=== PATIENT | male | born 1980 | race Caucasian/White ===

== ENCOUNTER 2020-04-28 18:45 | Emergency (ER) | payer SELFPAY ==
[2020-04-28 19:00] VITALS: BP 163/76; PULSE 113; RESP 18; TEMP 36.8; O2SAT 98; BMI 25.7
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
[2020-04-28] MEDS: fluorescein 1 mg Strip EYE-RIGHT (19:26)
[2020-04-28] MEDS: tetracaine 0.5% Op Soln 4 mL Btl 1 DROP EYE-RIGHT (19:27)
[2020-04-28 20:03] VITALS: BP 173/105; PULSE 103; O2SAT 95
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
[2020-04-28 21:41] VITALS: BP 162/103; PULSE 107; O2SAT 97
[2020-04-28 21:42] VITALS: BP 162/103; PULSE 110; O2SAT 95
--- NOTE | 2020-05-01 11:53 | DCPLANNER ---
software engineering manager had message to schedule a follow up appointment for patient with ENT. software engineering manager emailed patients information to both Batsheva and Yocasta at [facility] General Surgery. Patients information will be printed and reviewed. Clinic will call patient with appointment information.
--- NOTE | 2020-05-09 08:14 | DCPLANNER ---
storage manager sent email to Shayy and Charmaine at [facility] general surgery to confirm if an appointment had been scheduled for patient.
--- NOTE | 2020-05-11 11:20 | DCPLANNER ---
Patient has a follow up appointment scheduled for Tuesday, May 12, 2020 at 2:[address] Narayan, ENT. Clinic will contact patient with appointment information.
--- NOTE | 2020-05-25 14:36 | DCPLANNER ---
Patient had a follow up appointment scheduled for 05.12.[address] Sylvain ALANIS ENT - patient did attend appointment.
== END 2020-04-28 21:44 | disposition home or self-care (01) ==
PROVIDERS: Emergency Provider Family Medicine; PCP Family Medicine
DX: S02.31XA Fracture of orbital floor, right side, initial encounter for closed fracture (principal); S06.0X0A Concussion without loss of consciousness, initial encounter; Y00.XXXA Assault by blunt object, initial encounter
CPT/HCPCS: 70450; 70486; 73130; 99283

== ENCOUNTER 2020-07-15 18:54 | Emergency (ER) | payer SELFPAY ==
[2020-07-15] VITALS (7 sets, daily range): BP systolic 117–145; BP diastolic 75–88; PULSE 96–114; RESP 14–18; TEMP 36.6; O2SAT 95–99; BMI 26.4
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
--- NOTE | 2020-07-15 19:38 | W.ED.ABDPA2 ---
HPI - Abdominal Pain General: Chief Complaint: Abdominal Pain Stated Complaint: post surgery issues Time Seen by Provider: 07/15/20 19:15 History of Present Illness: HPI narrative: This a 40-year-old male who is on day 3 postop from a laparoscopic cholecystectomy at [facility] that family reports that was done on a emergent basis but he was able to be discharged following the surgery. He has been taking some oxycodone at home which does cause him to itch but denies any shortness of breath or hives he is also taking an [id number] stool softener. He is complaining of mid periumbilical abdominal pain sharp in nature he feels like it is gotten worse over the past couple of days he has passed some gas but he is not able to have a bowel movement. He denies any nausea or vomiting and no fevers denies any drainage from his wounds his wound near his bellybutton has had a little bit of bleeding but easily controlled with a simple Band-Aid. As far as his foot complaint they are saying that he has 2 abrasions over the base of his fourth and fifth toes that were not there prior to him going into the hospital and that it itches but there is no signs of infection redness or streaking up his leg Review of Systems Narrative: General: denies fatigue, fever or chills HEENT: denies ear pain, denies nasal congestion, denies vision changes, denies sore throat Neck: denies masses or pain Resp: denies cough, denies shortness of breath, denies pleuritic pain Cardio: denies chest pain, denies edema GI: see HPI, mid abdominal pain, denies N/V/D, denies black/tarry or bloody stools : denies hematuria, denies dysuria Neuro: denies headache, denies dizziness, denies motor or sensory changes Musculoskeletal: denies pain, denies swelling Skin: denies rashes Psych: denies SI or HI Endocrine: denies thyroid symptoms, denies lymphadenopathy all over ROS reviewed and patient denies PFSH ED PFSH: Social History Smoking and tobacco status: current every day smoker cigarettes Packs smoked per day: 0.5 Years cigarettes smoked: 20 Alcohol intake: never Special bk needs: No Physical Exam Narrative: EXAM NARRATIVE: General: a/o/3, no distress Head: atraumatic HEENT: normal eyes, normal conjunctiva, normal hearing, normal external nose, normal mouth, mucous membranes moist Neck: FROM, trachea midline Chest: normal expansion, no gross deformities Resp: normal speech, no retractions, no accessory muscle use, CTA bilaterally Cardio: regular rate and rhythm and no murmur, no peripheral edema, normal peripheral pulses GI: wounds healing well, no bleeding, hypertympanic and increased bowel sounds are very active : deferred Musculoskeletal: FROM, no pain or gross deformities Neuro: a/o appropriate for age, no gross motor or sensory deficitys, CN II-XII grossly intact, normal coordination, normal speech Skin: no rashes, 2 small abrasions almost more like a rug burn or friction rub at base of 4th/5th toes, no signs of infection Psych: cooperative, normal mood and effect Course Vital Signs: Vital signs: Vital Signs Temperature 97.8 F 07/15/20 18:58 Pulse Rate 100 07/15/20 21:35 Respiratory Rate 16 07/15/20 21:35 Blood Pressure 145/88 07/15/20 21:35 Pulse Oximetry 97 07/15/20 21:35 MDM - Abdominal Pain MDM Narrative: Medical decision making narrative: Discussed with patient his mid abdominal pains probably from the CO2 that they inflated patient and significant other do not appear happy with their care at the previous facility and so they were not even told about that he does appear to be a little hypertympanic he does have increased and very active bowel sounds so would think more unlikely to be a perforation. However I will check some labs and a CT scan just to look for any type of bile leak abscess and/or perforation of the bowel although I explained this to the patient and family could be difficult since he is just had instrumentation in his bowels and that the CO2 could mimic free air vice versa Discussed with him his foot issue does not appear to be infected Reviewed CAT scan results it seems unlikely that patient would have an abscess forming 2 days he does have a little bit of a white count but he also just had surgery 2 days ago. I spoke with Dr. Constantino the surgeon over at [facility] we reviewed the CT results and he agrees as well it would seem unlikely you have an abscess in 2 days patient has no fever and his liver functions have improved from what Dr. Constantino had said. Discussed results with the patient and family Dr. Burris said he would be happy to see them on Friday at 1 PM and he also recommended patient may be stick to ibuprofen or Tylenol and try to avoid significant pain medications as it can cause constipation which would increase his abdominal discomfort. I did give the results to him and to his significant other and discussed the plan and he says he feels better and he is ready for discharge Lab Data: Labs: Lab Results 07/15/20 07/15/20 Range/Units 19:48 19:48 WBC 14.6 H (4.0-10.0) 10^3/ uL RBC 5.30 (4.1-5.3) 10^6/u L Hgb 15.9 (11.7-16.6) g/dL Hct 46.6 (42.0-52.0) % MCV 87.9 (80-94) fL MCH 30.0 (28.0-34.0) pg MCHC 34.1 (30.0-36.0) g/dL RDW 12.8 (12.1-15.1) % Plt Count 228 (130-400) 10^3/c mm MPV 9.8 (7.4-10.4) fL Neut % (Auto) 71.7 % Lymph % (Auto) 20.0 % [place] % (Auto) 6.2 % Eos % (Auto) 1.3 % Baso % (Auto) 0.3 % Neut # (Auto) 10.49 H (1.8-7.7) 10^3/u L Lymph # (Auto) 2.9 (0.8-4.8) 10^3/u L [place] # (Auto) 0.9 (0.2-0.9) 10^3/u L Eos # (Auto) 0.2 (0.0-0.8) 10^3/u L Baso # (Auto) 0.0 (0.0-0.1) 10^3/u L Nucleated RBC % (a uto) 0 % Nucleated RBCs # 0.0 /100WBC Sodium 139 (136-145) mmol/L Potassium 3.8 (3.5-5.1) mmol/L Chloride 102 (98-107) mmol/L Carbon Dioxide 29 (22-29) mmol/L Anion Gap 11.8 (5-19) BUN 12 (6-20) mg/dL Creatinine 0.8 (0.7-1.2) mg/dL GFR Calculation 106.5 (90-130) mL/min Glucose 91 (65-115) mg/dL Calculated Osmolal ity 287 (285-295) mOsm/k g Calcium 8.6 (8.5-10.5) mg/dL Total Bilirubin 0.4 (0.15-1.2) mg/dL AST 21 (0-40) U/L ALT 41 (0-41) U/L Alkaline Phosphata se 92 (40-130) IU/L Total Protein 6.3 L (6.6-8.7) g/dL Albumin 3.8 (3.5-5.2) g/dL Globulin 2.5 (1.3-4.6) g/dL Lipase 27 (13-60) U/L Discharge Plan Discharge Patient Disposition: Home Clinical Impression: Post-op pain Condition: Stable Prescriptions: No Action No Known Home Medications RF: 0 Discharge Orders: Discharge ED (Routine); Ordered 07/15/20 Ordered By: Diamante Mattson Referrals: Crispin Jim, [Primary Care Provider] - Discharge Diet: Advance as tolerated Patient Instructions: Opioid Safety, Post Operative Pain Activity Restrictions/Additional Instructions: Dr. Constantino over at [facility] said he could see you Friday at 1 PM for a recheck Monitor for fevers Recommend that she walk around more to see if you can get your bowels to move and/or pass more gas. Continue your stool softeners. Dr. Burris also recommends you try ibuprofen and/or Tylenol alternating them regularly instead of the pain medication so your bowels will move quicker however if you do need the pain medicine that is okay to go ahead and take it Return if fevers increased pain vomiting worsening of symptoms Thank you for choosing [facility] for your healthcare needs today. Please realize this is an emergency room and that we are providing you with a medical screening exam and this may not be complete and all inclusive of all the testing and or work up that you may need to determine your ailment or severity of your illness. It is very important that you follow up as instructed or that you return to the Emergency Department should you have concerns or if your condition changes or worsens in any way. Coding Level of Care Code ED Interlacer for Angelo Bains
[2020-07-15 19:53] LABS: Basophils % 0.3 %; Eosinophils # 0.2 10^3/uL (0.0-0.8); Eosinophils % 1.3 %; Hematocrit 46.6 % (42.0-52.0); Hemoglobin 15.9 g/dL (11.7-16.6); Lymphocytes # 2.9 10^3/uL (0.8-4.8); Mean Corpuscular HGB Conc 34.1 g/dL (30.0-36.0); Mean Corpuscular Volume 87.9 fL (80-94); Mean Platelet Volume 9.8 fL (7.4-10.4); Monocytes # 0.9 10^3/uL (0.2-0.9); Monocytes % 6.2 %; Neutrophils # 10.49 10^3/uL (1.8-7.7); Neutrophils % 71.7 %; Nucleated Red Blood Cells % 0 %; Platelet Count 228 10^3/cmm (130-400); Red Cell Distribution Width 12.8 % (12.1-15.1); White Blood Count 14.6 10^3/uL (4.0-10.0)
[2020-07-15 20:10] LABS: Alanine Aminotransferase 41 U/L (0-41); Albumin Level 3.8 g/dL (3.5-5.2); Alkaline Phosphatase 92 IU/L (40-130); Anion Gap 11.8 (5-19); Aspartate Amino Transferase 21 U/L (0-40); Blood Urea Nitrogen 12 mg/dL (6-20); Calcium 8.6 mg/dL (8.5-10.5); Carbon Dioxide 29 mmol/L (22-29); Chloride 102 mmol/L (98-107); Globulin 2.5 g/dL (1.3-4.6); Glomerular Filtration Rate 106.5 mL/min (90-130); Glucose 91 mg/dL (65-115); Lipase 27 U/L (13-60); Osmolality Calculated 287 mOsm/kg (285-295); Potassium 3.8 mmol/L (3.5-5.1); Sodium 139 mmol/L (136-145); Total Bilirubin 0.4 mg/dL (0.15-1.2); Total Protein 6.3 g/dL (6.6-8.7)
[2020-07-15] MEDS: fentaNYL 50 mcg/mL INJ 2mL IVP (20:10)
[2020-07-15] MEDS: iohexol 300 mg/mL 100 mL Btl IV (20:25)
== END 2020-07-15 21:38 | disposition home or self-care (01) ==
PROVIDERS: Emergency Provider Emergency Medicine; PCP Family Medicine
DX: G89.18 Other acute postprocedural pain (principal); F17.210 Nicotine dependence, cigarettes, uncomplicated
CPT/HCPCS: 74177; 80053; 83690; 85025; 96374; 99283; J3010; Q9967

== ENCOUNTER 2020-07-30 11:28 | Emergency (ER) | payer SELFPAY ==
[2020-07-30 11:30] VITALS: BP 128/88; PULSE 104; RESP 18; TEMP 36.7; O2SAT 98; BMI 26.4
--- NOTE | 2020-07-30 11:40 | ED_ITS ---
HPI - Seizure General: Chief Complaint: Seizure Stated Complaint: active seizures Time Seen by Provider: 07/30/20 11:38 Source: patient Mode of arrival: ambulatory Limitations: no limitations History of Present Illness: HPI Narrative: Patient is a 40-year-old male who presents to ED today along with his girlfriend for complaints of repetitive seizures beginning last night. Girlfriend states he has had a total of 7 seizures from yesterday evening and throughout the night. She states patient would tense up and then start shaking uncontrollably. States episodes would last anywhere from 30 seconds to 1 to 2 minutes. Afterwards he would be very confused and complained of visual changes. Patient states he has a seizure history and at one point was taking medications (does not know name) but states he was taken off of them while he was in senior care. Patient states his last seizure was 1.5 years ago. Girlfriend states they have been under a lot of stress recently and wonders if this could be contributing. Admits to methamphetamine use 4 days ago. No alcohol use. He complains of a headache currently. MD complaint: seizure Onset (ago): hour(s) Description of Episode: loss of consciousness, tonic-clonic movement and post- event confusion Witnessed: Yes - by Bystander (girlfriend) Trauma: No Seizure History: Yes Place: Home Possible Precipitating Event: stress Associated symptoms: Reports confusion and other (headache); Deny chest pain, chills, fever(s), malaise or syncope Treatments prior to arrival: none Review of Systems Const: Denies: fever(s), chills, body aches, fatigue or malaise Eyes: Reports: change in vision, blurry vision and other (following seizure episodes); Denies: photophobia, floaters or seeing flashes Card: Denies: chest pain, palpitations, irregular heart rhythm, lighthea dedness, syncope or dyspnea on exertion Resp: Denies: dyspnea, productive cough or pain on inspiration GI: Reports: nausea; Denies: abdominal pain, vomiting, heartburn or diarrhea : Denies: difficulty urinating or dysuria Musc: Denies: neck pain, back pain or joint pain Skin/Breast: Denies: rash Neuro: Reports: headache(s), confusion and seizure-like activity; Denies: numbness in extremities, weakness in extremities, sensory changes, frequent falls, dizziness, vertigo or Slurred speech present [facility] ED PFSH: Social History Smoking and tobacco status: current every day smoker cigarettes Packs smoked per day: 0.5 Years cigarettes smoked: 20 Alcohol intake: never Special bk needs: No Physical Exam Const: COMMON NORMALS: patient oriented x3, no limitations and alert GENERAL APPEARANCE: cooperative and in distress (complains of a headache) ORIENTATION/CONSCIOUSNESS: Yes awake, Yes oriented to person, Yes oriented to place and Yes oriented to time HENMT: COMMON NORMALS: normocephalic and atraumatic HEAD & SCALP: normal to inspection, normocephalic and atraumatic FACE & SINUS: normal facial exam MOUTH: other (no intraoral injury noted) Eye: COMMON NORMALS: EOMs intact bilaterally and conjunctivae normal VISUAL [place]: No peripheral vision loss ALIGNMENT: Yes alignment normal PERIORBITAL: periorbital findings normal EYELID: eyelids normal CONJUNCTIVA: Yes conjunctivae normal SCLERA: sclerae normal CORNEA: Yes corneas normal OTHER: R pupil is larger than L; direct and consenual light reflexes intact (this was present back in Apr according to provider documentation) Neck/C-Spine: COMMON NORMALS: full ROM, no lymphadenopathy and no meningeal signs Resp: COMMON NORMALS: normal respiratory effort and clear to auscultation bilaterally AUSCULTATION: clear to auscultation bilaterally Cardio: COMMON NORMALS: regular rate and regular rhythm RATE: regular rate RHYTHM: regular rhythm Neuro: YANI COMA SCALE: document GCS findings Yani coma scale eye opening: Spontaneous [place] coma scale verbal response: Orientated Yani coma scale motor response: Obey commands [place] coma scale total score: 15 COMMON NORMALS: patient oriented x3, CN's II-XII intact bilaterally, moves all extremities, no focal motor deficits and no sensory deficits noted SENSORIUM/ORIENTATION: Yes alert, Yes oriented to person, Yes oriented to place and Yes oriented to time MENINGEAL SIGNS: Yes no meningeal signs Skin: COMMON NORMALS: no rashes or lesions noted GENERAL SKIN EXAM: no rashes or lesions noted TRAUMA: no lacerations or abrasions Course Vital Signs: Vital signs: Vital Signs Temperature 98.0 F 07/30/20 11:30 Pulse Rate 104 H 07/30/20 11:30 Respiratory Rate 18 07/30/20 11:30 Blood Pressure 128/88 07/30/20 11:30 Pulse Oximetry 98 07/30/20 11:30 MDM - Seizure MDM Narrative: Medical decision making narrative: Patient has not had any seizure-like activity here. He was given a loading dose of Keppra and will be discharged home with this medication given history of 7 seizures throughout the night. Although he tells me he has been diagnosed with seizures previously he denies ever having an EEG performed. Patient will be referred to neurology for further evaluation. Patient does admit to being under a lot of stress. Active methamphetamine use. Certainly these activities could be functional related. Return to ED precautions given. Lab Data: Labs: Lab Results 07/30/20 07/30/20 07/30/20 Range/Units 12:05 12:05 12:05 WBC 11.3 H (4.0-10.0) 10^3/ uL RBC 5.36 H (4.1-5.3) 10^6/u L Hgb 16.1 (11.7-16.6) g/dL Hct 46.6 (42.0-52.0) % MCV 86.9 (80-94) fL MCH 30.0 (28.0-34.0) pg MCHC 34.5 (30.0-36.0) g/dL RDW 13.0 (12.1-15.1) % Plt Count 266 (130-400) 10^3/c mm MPV 10.4 (7.4-10.4) fL Neut % (Auto) 64.5 % Lymph % (Auto) 26.0 % [place] % (Auto) 5.6 % Eos % (Auto) 3.1 % Baso % (Auto) 0.4 % Neut # (Auto) 7.30 (1.8-7.7) 10^3/u L Lymph # (Auto) 3.0 (0.8-4.8) 10^3/u L [place] # (Auto) 0.6 (0.2-0.9) 10^3/u L Eos # (Auto) 0.4 (0.0-0.8) 10^3/u L Baso # (Auto) 0.1 (0.0-0.1) 10^3/u L Nucleated RBC % (a uto) 0 % Nucleated RBCs # 0.0 /100WBC Sodium 141 (136-145) mmol/L Potassium 4.3 (3.5-5.1) mmol/L Chloride 104 (98-107) mmol/L Carbon Dioxide 27 (22-29) mmol/L Anion Gap 14.3 (5-19) BUN 11 (6-20) mg/dL Creatinine 1.0 (0.7-1.2) mg/dL GFR Calculation 82.3 L (90-130) mL/min Glucose 76 (65-115) mg/dL Calculated Osmolal ity 290 (285-295) mOsm/k g Lactic Acid 2.0 (0.5-2.2) mmol/L Calcium 9.3 (8.5-10.5) mg/dL Magnesium 1.9 (1.7-2.3) mg/dL Total Bilirubin 0.3 (0.15-1.2) mg/dL AST 14 (0-40) U/L ALT 12 (0-41) U/L Alkaline Phosphata se 107 (40-130) IU/L Creatine Kinase 45 (39-308) U/L Total Protein 6.5 L (6.6-8.7) g/dL Albumin 4.4 (3.5-5.2) g/dL Globulin 2.1 (1.3-4.6) g/dL Urine Color (Yellow) Urine Appearance (CLEAR) Urine pH (5-7) Ur Specific Gravit y (1.005-1.030) Urine Protein (Negative) Urine Glucose (UA) (Normal) Urine Ketones (Negative) Urine Blood (Negative) Urine Nitrate (Negative) Urine Bilirubin (Negative) Urine Urobilinogen (Negative) mg/dL Ur Leukocyte [place] ase (Negative) Urine Opiates Scre en (Negative) ng/mL Ur Barbiturates Sc reen (Negative) ng/mL Ur Phencyclidine S crn (Negative) ng/mL Ur Amphetamines Sc reen (Negative) ng/mL U Benzodiazepines Scrn (Negative) ng/mL Urine Cocaine Scre en (Negative) ng/mL U Marijuana (THC) Screen (Negative) ng/mL 07/30/20 07/30/20 Range/Units 13:40 13:40 WBC (4.0-10.0) 10^3/ uL RBC (4.1-5.3) 10^6/u L Hgb (11.7-16.6) g/dL Hct (42.0-52.0) % MCV (80-94) fL MCH (28.0-34.0) pg MCHC (30.0-36.0) g/dL RDW (12.1-15.1) % Plt Count (130-400) 10^3/c mm MPV (7.4-10.4) fL Neut % (Auto) % Lymph % (Auto) % [place] % (Auto) % Eos % (Auto) % Baso % (Auto) % Neut # (Auto) (1.8-7.7) 10^3/u L Lymph # (Auto) (0.8-4.8) 10^3/u L [place] # (Auto) (0.2-0.9) 10^3/u L Eos # (Auto) (0.0-0.8) 10^3/u L Baso # (Auto) (0.0-0.1) 10^3/u L Nucleated RBC % (a uto) % Nucleated RBCs # /100WBC Sodium (136-145) mmol/L Potassium (3.5-5.1) mmol/L Chloride (98-107) mmol/L Carbon Dioxide (22-29) mmol/L Anion Gap (5-19) BUN (6-20) mg/dL Creatinine (0.7-1.2) mg/dL GFR Calculation (90-130) mL/min Glucose (65-115) mg/dL Calculated Osmolal ity (285-295) mOsm/k g Lactic Acid (0.5-2.2) mmol/L Calcium (8.5-10.5) mg/dL Magnesium (1.7-2.3) mg/dL Total Bilirubin (0.15-1.2) mg/dL AST (0-40) U/L ALT (0-41) U/L Alkaline Phosphata se (40-130) IU/L Creatine Kinase (39-308) U/L Total Protein (6.6-8.7) g/dL Albumin (3.5-5.2) g/dL Globulin (1.3-4.6) g/dL Urine Color Yellow (Yellow) Urine Appearance Clear (CLEAR) Urine pH 6 (5-7) Ur Specific Gravit y 1.020 (1.005-1.030) Urine Protein Neg (Negative) Urine Glucose (UA) Norm (Normal) Urine Ketones Negative (Negative) Urine Blood Neg (Negative) Urine Nitrate Negative (Negative) Urine Bilirubin Neg (Negative) Urine Urobilinogen Norm (Negative) mg/dL Ur Leukocyte [place] a[place] Negative (Negative) Urine Opiates Scre en Negative (Negative) ng/mL Ur Barbiturates Sc reen Negative (Negative) ng/mL Ur Phencyclidine S crn Negative (Negative) ng/mL Ur Amphetamines Sc reen Positive H (Negative) ng/mL U Benzodiazepines Scrn Negative (Negative) ng/mL Urine Cocaine Scre en Negative (Negative) ng/mL U Marijuana (THC) Screen Negative (Negative) ng/mL Imaging Data^: CT Head: Radiologist's impression: [address] [id number] Scan ReportSigned Patient: July Stephenson #: [id number]: [id number]#:[id number]/Sex: 40 / MADM Date: 07/30/20Loc: ERRoom/Bed:Attending Dr: Ordering Provider/Ordering MD: Elyssa Thornton Date of Service: 07/30/20 Procedure(s): CT head wo con* [id number] Accession Number(s): [id number] Report Number: [id number] PROCEDURE INFORMATION: Exam: CT Head Without Contrast Exam date and time: 07/30/2020 11:59 AM Age: 40 years old Clinical indication: Pain and condition or disease; Convulsions or seizures and headache; Headache not specified; Unspecified TECHNIQUE: Imaging protocol: Computed tomography of the head without contrast. Radiation optimization: All CT scans at this facility use at least one of these dose optimization techniques: automated exposure control; mA and/or kV adjustment per patient size (includes targeted exams where dose is matched to clinical indication); or iterative reconstruction. COMPARISON: CT head wo con* [id number] 04/28/2020 7:41 PM RADIATION DOSE METRICS: Total DLP (mGy-cm): 869.26 FINDINGS: Brain: Normal. No hemorrhage. Unremarkable white matter. No mass effect. Cerebral ventricles: No ventriculomegaly. Bones/joints: Unremarkable. No acute fracture. Paranasal sinuses: Visualized sinuses are unremarkable. No fluid levels. Mastoid air cells: Visualized mastoid air cells are well aerated. Soft tissues: Unremarkable. CT/CT head wo con* [id number] IMPRESSION: No acute intracranial abnormality. Radiation Dose CTDIVOL = (mGy): DLP = 869.26 (mGy-cm) Dictated By:Crispin Castro MDSigned By:Crispin Castro MDSigned Date/Time:07/30/20 1241DD/ 1240 Discharge Plan Discharge Patient Disposition: Home Clinical Impression: Seizure-like activity, Methamphetamine use Condition: Stable Prescriptions: New Keppra 500 mg tablet 500 mg PO BID Qty: 60 RF: 0 Discharge Orders: Discharge ED (Routine); Ordered 07/30/20 Ordered By: Elyssa Thornton Referrals: Harper Harvey MD [Physician] - Crispin Jim DO [Primary Care Provider] - Patient Instructions: Recurrent Seizures Adult (ED), Seizures Activity Restrictions/Additional Instructions: As discussed case management should contact you to set you up with a neurology follow-up appointment. You need to return to the emergency department for any further episodes of seizures. Please seek help regarding your methamphetamine use. Coding Level of Care Code ED Operations And Maintenance Technician for Chg Fwd Exam Comprehensive
[2020-07-30 12:20] LABS: Basophils # 0.1 10^3/uL (0.0-0.1); Basophils % 0.4 %; Eosinophils # 0.4 10^3/uL (0.0-0.8); Eosinophils % 3.1 %; Hematocrit 46.6 % (42.0-52.0); Hemoglobin 16.1 g/dL (11.7-16.6); Mean Corpuscular HGB Conc 34.5 g/dL (30.0-36.0); Mean Corpuscular Volume 86.9 fL (80-94); Mean Platelet Volume 10.4 fL (7.4-10.4); Monocytes # 0.6 10^3/uL (0.2-0.9); Monocytes % 5.6 %; Neutrophils % 64.5 %; Nucleated Red Blood Cells % 0 %; Platelet Count 266 10^3/cmm (130-400); Red Blood Count 5.36 10^6/uL (4.1-5.3); White Blood Count 11.3 10^3/uL (4.0-10.0)
[2020-07-30 13:03] LABS: Alanine Aminotransferase 12 U/L (0-41); Albumin Level 4.4 g/dL (3.5-5.2); Alkaline Phosphatase 107 IU/L (40-130); Anion Gap 14.3 (5-19); Aspartate Amino Transferase 14 U/L (0-40); Blood Urea Nitrogen 11 mg/dL (6-20); Calcium 9.3 mg/dL (8.5-10.5); Carbon Dioxide 27 mmol/L (22-29); Chloride 104 mmol/L (98-107); Creatine Phosphokinase 45 U/L (39-308); Globulin 2.1 g/dL (1.3-4.6); Glomerular Filtration Rate 82.3 mL/min (90-130); Glucose 76 mg/dL (65-115); Magnesium 1.9 mg/dL (1.7-2.3); Osmolality Calculated 290 mOsm/kg (285-295); Potassium 4.3 mmol/L (3.5-5.1); Sodium 141 mmol/L (136-145); Total Bilirubin 0.3 mg/dL (0.15-1.2); Total Protein 6.5 g/dL (6.6-8.7)
[2020-07-30 13:52] LABS: Add Urine Microscopic? NO; Charge for UA Resulting for Rev
[2020-07-30 13:55] LABS: Bilirubin Urine Neg (Negative); Blood Urine Neg (Negative); Glucose Urine UA Norm (Normal); Ketones Urine Negative (Negative); Leukocyte Esterase Urine Negative (Negative); Nitrate Urine Negative (Negative); Protein Urine Neg (Negative); Urine Appearance Clear (CLEAR); Urine Color Yellow (Yellow); Urobilinogen Urine Norm (Negative); pH Urine 6 (5-7)
[2020-07-30 14:02] LABS: Amphetamines Screen Urine Positive (Negative); Barbiturates Screen Urine Negative (Negative); Benzodiazepines Screen Urine Negative (Negative); Cocaine Screen Urine Negative (Negative); Opiate Screen Urine Negative (Negative); PCP Screen Urine Negative (Negative); THC Screen Urine Negative (Negative)
[2020-07-30 14:38] VITALS: BP 123/90; PULSE 106; RESP 18; O2SAT 98
--- NOTE | 2020-07-31 12:10 | DCPLANNER ---
Patient had a message to schedule a follow up appointment for patient with Dr. Hamlin office. fire manager emailed patients information to Jeannie at Dr. Hamlin office. Patients information will be printed and reviewed. Clinic will call patient with appointment information.
--- NOTE | 2020-08-10 15:01 | DCPLANNER ---
Patient has a follow up appointment scheduled for Friday, August 25, [address] at 9:[address] Harvey. Clinic will call patient with appointment information.
--- NOTE | 2020-10-03 11:53 | DCPLANNER ---
Patient had a follow up appointment scheduled for 08.25.[address] Harvey - patient did not attend appointment.
== END 2020-07-30 14:39 | disposition home or self-care (01) ==
PROVIDERS: Emergency Provider Physician Assistant; PCP Family Medicine
DX: R56.9 Unspecified convulsions (principal); F15.90 Other stimulant use, unspecified, uncomplicated; F17.210 Nicotine dependence, cigarettes, uncomplicated
CPT/HCPCS: 70450; 80053; 80306; 81003; 82550; 83605; 83735; 85025; 96374; 99283; J1953

== ENCOUNTER 2020-08-11 20:46 | Emergency (ER) | payer SELFPAY ==
[2020-08-11 21:03] VITALS: BP 133/86; PULSE 99; RESP 15; TEMP 36.6; O2SAT 100; BMI 27.2
[2020-08-11 21:23] VITALS: BP 132/73; PULSE 96; O2SAT 96
[2020-08-11 22:10] VITALS: BP 146/96; PULSE 95; O2SAT 95
[2020-08-11] MEDS: LORazepam 2 mg/mL INJ 1 mL IVP (22:36)
[2020-08-11] MEDS: sodium chloride 0.9% 1,000 ML 999 ML IV (22:37)
[2020-08-11 22:41] LABS: Basophils # 0.1 10^3/uL (0.0-0.1); Basophils % 0.4 %; Eosinophils # 0.4 10^3/uL (0.0-0.8); Eosinophils % 2.8 %; Hematocrit 44.1 % (42.0-52.0); Hemoglobin 15.9 g/dL (11.7-16.6); Lymphocytes # 4.3 10^3/uL (0.8-4.8); Mean Corpuscular HGB Conc 36.1 g/dL (30.0-36.0); Mean Corpuscular Hemoglobin 30.2 pg (28.0-34.0); Mean Corpuscular Volume 83.7 fL (80-94); Mean Platelet Volume 10.3 fL (7.4-10.4); Monocytes # 0.8 10^3/uL (0.2-0.9); Monocytes % 6.6 %; Neutrophils # 7.05 10^3/uL (1.8-7.7); Neutrophils % 55.6 %; Nucleated Red Blood Cells % 0 %; Platelet Count 195 10^3/cmm (130-400); Red Blood Count 5.27 10^6/uL (4.1-5.3); Red Cell Distribution Width 12.6 % (12.1-15.1); White Blood Count 12.7 10^3/uL (4.0-10.0)
[2020-08-11 22:55] LABS: Add Urine Microscopic? NO; Charge for UA Resulting for Rev
[2020-08-11 22:57] LABS: Alanine Aminotransferase 10 U/L (0-41); Albumin Level 4.3 g/dL (3.5-5.2); Alkaline Phosphatase 102 IU/L (40-130); Aspartate Amino Transferase 14 U/L (0-40); Blood Urea Nitrogen 13 mg/dL (6-20); Calcium 9.2 mg/dL (8.5-10.5); Carbon Dioxide 27 mmol/L (22-29); Chloride 103 mmol/L (98-107); Creatine Phosphokinase 53 U/L (39-308); Globulin 2.3 g/dL (1.3-4.6); Glomerular Filtration Rate 124.3 mL/min (90-130); Glucose 86 mg/dL (65-115); Magnesium 1.9 mg/dL (1.7-2.3); Osmolality Calculated 289 mOsm/kg (285-295); Phosphorus 3.8 mg/dL (2.5-4.5); Sodium 140 mmol/L (136-145); Total Bilirubin 0.4 mg/dL (0.15-1.2); Total Protein 6.6 g/dL (6.6-8.7)
[2020-08-11 23:01] LABS: Bilirubin Urine Neg (Negative); Blood Urine Neg (Negative); Glucose Urine UA Norm (Normal); Ketones Urine Negative (Negative); Leukocyte Esterase Urine Negative (Negative); Nitrate Urine Negative (Negative); Protein Urine Neg (Negative); Specific Gravity, Urine 1.025 (1.005-1.030); Urine Appearance Clear (CLEAR); Urine Color Yellow (Yellow); Urobilinogen Urine 1 mg/dL (Negative); pH Urine 5 (5-7)
[2020-08-11 23:01] LABS: Alcohol Level < 10 mg/dL (0-10); Anion Gap 13.9 (5-19); Potassium 3.9 mmol/L (3.5-5.1)
[2020-08-11 23:16] LABS: Slide Review Slide Review Perform
[2020-08-11 23:17] LABS: Amphetamines Screen Urine Positive (Negative); Barbiturates Screen Urine Negative (Negative); Benzodiazepines Screen Urine Negative (Negative); Cocaine Screen Urine Negative (Negative); Opiate Screen Urine Negative (Negative); PCP Screen Urine Negative (Negative); THC Screen Urine Negative (Negative)
[2020-08-12 00:50] VITALS: BP 142/96; PULSE 101; O2SAT 95
--- NOTE | 2020-08-12 05:24 | ED_ITS ---
HPI - Seizure General: Chief Complaint: Seizure Stated Complaint: Having Seizures Time Seen by Provider: 08/11/20 21:15 History of Present Illness: HPI Narrative: 40-year-old male with a history of seizure disorder. He was seen a couple weeks ago in the ER after several seizures that happen throughout the day. These are periods of generalized movement, with some unresponsiveness he has a history of these, but had not had one for 1-1/2 years until recently. His significant other tells me that he has been having these daily since. He was prescribed Keppra on his last visit, but they were unable to afford it. On his last visit he admitted to amphetamine use MD complaint: possible seizure Onset (ago): hour(s) Description of Episode: loss of consciousness, tonic-clonic movement and bladder incontinence -: minutes(s) Witnessed: Yes - by Bystander Trauma: No Seizure History: No Associated symptoms: Deny chest pain, confusion, cough, fever(s) or weakness Review of Systems Const: Denies: fever(s) Eyes: Reports: change in vision ENMT: Denies: odynophagia or swelling of lips/tongue Card: Denies: chest pain Resp: Denies: dyspnea, non-productive cough or wheezing GI: Denies: abdominal pain, nausea or vomiting : Denies: difficulty urinating or hematuria Musc: Denies: neck pain, back pain, joint redness or joint warmth Skin/Breast: Denies: rash, pruritus or erythema Neuro: Denies: headache(s), dizziness, vertigo, confusion or seizure-like activity Psych: Denies: anxiety, visual hallucinations or auditory hallucinations PFSH ED PFSH: Social History Smoking and tobacco status: current every day smoker cigarettes Packs smoked per day: 0.5 Years cigarettes smoked: 20 Alcohol intake: never Special bk needs: No Physical Exam Const: GENERAL APPEARANCE: cooperative, well developed, anxious and lethargic ORIENTATION/CONSCIOUSNESS: Yes oriented to person, Yes oriented to place, Yes oriented to time and Yes lethargic HENMT: COMMON NORMALS: normocephalic, external ears normal and Normal external nose present HEAD & SCALP: normocephalic FACE & SINUS: normal facial exam NOSE: Normal external nose present and No nasal discharge present EXTERNAL EAR: Yes external ears normal TEETH & GINGIVA: no abnormal tooth and associated gingiva THROAT: no peritonsillar mass Eye: COMMON NORMALS: EOMs intact bilaterally and conjunctivae normal EYELID: eyelids normal CONJUNCTIVA: Yes conjunctivae normal Neck/C-Spine: COMMON NORMALS: full ROM GENERAL: No tracheal deviation CERVICAL SPINE: Yes normal cervical lordosis Chest: COMMONS NORMALS: normal inspection of the chest CHEST: No tenderness Resp: COMMON NORMALS: clear to auscultation bilaterally EFFORT & INSPECTION: No tachypneic, No respiratory distress, No retractions, No uses accessory muscles and No tracheal deviation AUSCULTATION: clear to auscultation bilaterally, no rhonchi, no wheezes and lung sounds not diminished Cardio: COMMON NORMALS: regular rate and regular rhythm RATE: regular rate RHYTHM: regular rhythm HEART SOUNDS: no murmurs PERIPHERAL PULSES: radial pulses present GI: INSPECTION: No abdominal distension AUSCULTATION: No Hyperactive bowel sounds present and No Hypoactive bowel sounds present PALPATION: No Guarding due to palpation present (GI) and No Rigid due to palpation PERCUSSION: no dullness to percussion and no tympanic to percussion Neuro: COMMON NORMALS: no sensory deficits noted SENSORIUM/ORIENTATION: Yes oriented to person, Yes oriented to place, Yes oriented to time and Yes lethargic CRANIAL NERVES: Yes CN normal except as noted COORDINATION/BALANCE: [id number] test normal and [id number] test normal SPEECH: speech normal GAIT: Yes Unable to assess gait COORDINATION: kctism-ak-ysco test normal and omqj-[id number] test normal Psych: COMMON NORMALS: cooperative, speech normal and denies hallucinations APPEARANCE: Yes grossly normal ATTITUDE: Yes Other attitude/behavior findings present (Psych) ACTIVITY/MOTOR BEHAVIOR: Yes appropriate eye contact and Yes fidgeting SPEECH: Yes normal speech MOOD & AFFECT: Yes anxious and No euphoric THOUGHT CONTENT: Yes Normal thought content present ATTENTION/CONCENTRATION: Yes attention grossly intact Skin: COMMON NORMALS: no rashes or lesions noted GENERAL SKIN EXAM: no rashes or lesions noted Course Vital Signs: Vital signs: Vital Signs Temperature 97.9 F 08/11/20 21:03 Pulse Rate 101 H 08/12/20 00:50 Respiratory Rate 15 08/11/20 21:03 Blood Pressure 142/96 08/12/20 00:50 Pulse Oximetry 95 08/12/20 00:50 MDM - Seizure MDM Narrative: Medical decision making narrative: Patient essentially back to baseline from seizure activity. He was prescribed Keppra 2 weeks ago, but never filled the prescription. He is loaded with Keppra. He will get his prescription filled at [facility] pharmacy for free in the morning. He is suspicious that Seroquel may be causing these, as he started the Seroquel around the same time that he started having seizures again. This may be true. Also, he was positive for amphetamines again, which could provoke seizures in a prone patient as well. Lab Data: Labs: Lab Results 08/11/20 08/11/20 08/11/20 Range/Units 22:30 22:30 22:50 WBC 12.7 H (4.0-10.0) 10^3/ uL RBC 5.27 (4.1-5.3) 10^6/u L Hgb 15.9 (11.7-16.6) g/dL Hct 44.1 (42.0-52.0) % MCV 83.7 (80-94) fL MCH 30.2 (28.0-34.0) pg MCHC 36.1 H (30.0-36.0) g/dL RDW 12.6 (12.1-15.1) % Plt Count 195 (130-400) 10^3/c mm MPV 10.3 (7.4-10.4) fL Neut % (Auto) 55.6 % Lymph % (Auto) 34.0 % [place] % (Auto) 6.6 % Eos % (Auto) 2.8 % Baso % (Auto) 0.4 % Neut # (Auto) 7.05 (1.8-7.7) 10^3/u L Lymph # (Auto) 4.3 (0.8-4.8) 10^3/u L [place] # (Auto) 0.8 (0.2-0.9) 10^3/u L Eos # (Auto) 0.4 (0.0-0.8) 10^3/u L Baso # (Auto) 0.1 (0.0-0.1) 10^3/u L Nucleated RBC % (a uto) 0 % Nucleated RBCs # 0.0 /100WBC Sodium 140 (136-145) mmol/L Potassium 3.9 (3.5-5.1) mmol/L Chloride 103 (98-107) mmol/L Carbon Dioxide 27 (22-29) mmol/L Anion Gap 13.9 (5-19) BUN 13 (6-20) mg/dL Creatinine 0.7 (0.7-1.2) mg/dL GFR Calculation 124.3 (90-130) mL/min Glucose 86 (65-115) mg/dL Calculated Osmolal ity 289 (285-295) mOsm/k g Calcium 9.2 (8.5-10.5) mg/dL Phosphorus 3.8 (2.5-4.5) mg/dL Magnesium 1.9 (1.7-2.3) mg/dL Total Bilirubin 0.4 (0.15-1.2) mg/dL AST 14 (0-40) U/L ALT 10 (0-41) U/L Alkaline Phosphata se 102 (40-130) IU/L Creatine Kinase 53 (39-308) U/L Total Protein 6.6 (6.6-8.7) g/dL Albumin 4.3 (3.5-5.2) g/dL Globulin 2.3 (1.3-4.6) g/dL Urine Color Yellow (Yellow) Urine Appearance Clear (CLEAR) Urine pH 5 (5-7) Ur Specific Gravit y 1.025 (1.005-1.030) Urine Protein Neg (Negative) Urine Glucose (UA) Norm (Normal) Urine Ketones Negative (Negative) Urine Blood Neg (Negative) Urine Nitrate Negative (Negative) Urine Bilirubin Neg (Negative) Urine Urobilinogen 1 H (Negative) mg/dL Ur Leukocyte Philly ase Negative (Negative) Urine Opiates Scre en (Negative) ng/mL Ur Barbiturates Sc reen (Negative) ng/mL Ur Phencyclidine S crn (Negative) ng/mL Ur Amphetamines Sc reen (Negative) ng/mL U Benzodiazepines Scrn (Negative) ng/mL Urine Cocaine Scre en (Negative) ng/mL U Marijuana (THC) Screen (Negative) ng/mL Ethyl Alcohol < 10 (0-10) mg/dL 08/11/20 Range/Units 22:50 WBC (4.0-10.0) 10^3/ uL RBC (4.1-5.3) 10^6/u L Hgb (11.7-16.6) g/dL Hct (42.0-52.0) % MCV (80-94) fL MCH (28.0-34.0) pg MCHC (30.0-36.0) g/dL RDW (12.1-15.1) % Plt Count (130-400) 10^3/c mm MPV (7.4-10.4) fL Neut % (Auto) % Lymph % (Auto) % [place] % (Auto) % Eos % (Auto) % Baso % (Auto) % Neut # (Auto) (1.8-7.7) 10^3/u L Lymph # (Auto) (0.8-4.8) 10^3/u L [place] # (Auto) (0.2-0.9) 10^3/u L Eos # (Auto) (0.0-0.8) 10^3/u L Baso # (Auto) (0.0-0.1) 10^3/u L Nucleated RBC % (a uto) % Nucleated RBCs # /100WBC Sodium (136-145) mmol/L Potassium (3.5-5.1) mmol/L Chloride (98-107) mmol/L Carbon Dioxide (22-29) mmol/L Anion Gap (5-19) BUN (6-20) mg/dL Creatinine (0.7-1.2) mg/dL GFR Calculation (90-130) mL/min Glucose (65-115) mg/dL Calculated Osmolal ity (285-295) mOsm/k g Calcium (8.5-10.5) mg/dL Phosphorus (2.5-4.5) mg/dL Magnesium (1.7-2.3) mg/dL Total Bilirubin (0.15-1.2) mg/dL AST (0-40) U/L ALT (0-41) U/L Alkaline Phosphata se (40-130) IU/L Creatine Kinase (39-308) U/L Total Protein (6.6-8.7) g/dL Albumin (3.5-5.2) g/dL Globulin (1.3-4.6) g/dL Urine Color (Yellow) Urine Appearance (CLEAR) Urine pH (5-7) Ur Specific Gravit y (1.005-1.030) Urine Protein (Negative) Urine Glucose (UA) (Normal) Urine Ketones (Negative) Urine Blood (Negative) Urine Nitrate (Negative) Urine Bilirubin (Negative) Urine Urobilinogen (Negative) mg/dL Ur Leukocyte Philly ase (Negative) Urine Opiates Scre en Negative (Negative) ng/mL Ur Barbiturates Sc reen Negative (Negative) ng/mL Ur Phencyclidine S crn Negative (Negative) ng/mL Ur Amphetamines Sc reen Positive H (Negative) ng/mL U Benzodiazepines Scrn Negative (Negative) ng/mL Urine Cocaine Scre en Negative (Negative) ng/mL U Marijuana (THC) Screen Negative (Negative) ng/mL Ethyl Alcohol (0-10) mg/dL Discharge Plan Discharge Patient Disposition: Home Clinical Impression: Generalized seizure Condition: Stable Prescriptions: Continued Keppra 500 mg tablet 500 mg PO BID Qty: 60 RF: 0 Discharge Orders: Discharge ED (Routine); Ordered 08/12/20 Ordered By: Tomas Serna Referrals: Crispin Jim DO [Primary Care Provider] - Patient Instructions: Recurrent Seizures Adult (ED) Activity Restrictions/Additional Instructions: Fill your prescription tomorrow morning at [facility] pharmacy [place]. You should be able to add the cost of the prescription to your hospital bill and pay later. You might consider stopping Seroquel, as seizures are a possible side effect. Consult with your psychiatrist. Avoid any stimulant medication, as they can predispose you to seizures. Coding Level of Care Code ED Coil W[employer] for Angelo Fwvenkatesh Exam Comprehensive
--- NOTE | 2020-08-15 07:28 | DCPLANNER ---
adult care manager had message to schedule a follow up appointment for patient with Dr. Hamlin office for seizure disorder. adult care manager emailed patients information to the Jeannie at Dr. Hamlin office. Patients information will be printed and reviewed. Clinic will call patient with appointment information.
--- NOTE | 2020-08-17 08:35 | DCPLANNER ---
Patient has a follow up appointment scheduled for Friday, August 25, [address] at 9:[address] Harvey. Clinic will call patient with appointment information.
--- NOTE | 2020-10-05 07:05 | DCPLANNER ---
Patient had a follow up appointment scheduled for 08.25.[address] Harvey - patient did not attend the appointment.
== END 2020-08-12 00:50 | disposition home or self-care (01) ==
PROVIDERS: Emergency Provider Emergency Medicine; PCP Family Medicine
DX: R56.9 Unspecified convulsions (principal); F17.210 Nicotine dependence, cigarettes, uncomplicated
CPT/HCPCS: 80053; 80306; 80307; 81003; 82550; 83735; 84100; 85025; 96361; 96374; 96375; 99284; J1953; J2060; J7030

== ENCOUNTER 2020-08-12 23:12 | Observation (INO) | payer SELFPAY ==
[2020-08-12 23:13] VITALS: BP 141/107; PULSE 104; RESP 16; TEMP 36.8; O2SAT 98; BMI 27.2
[2020-08-12 23:57] LABS: Amphetamines Screen Urine Positive (Negative); Barbiturates Screen Urine Negative (Negative); Benzodiazepines Screen Urine Positive (Negative); Cocaine Screen Urine Negative (Negative); Opiate Screen Urine Negative (Negative); PCP Screen Urine Negative (Negative); THC Screen Urine Negative (Negative)
[2020-08-12 23:58] LABS: Add Urine Microscopic? NO; Charge for UA Resulting for Rev
[2020-08-13 00:05] LABS: Bilirubin Urine Neg (Negative); Blood Urine Neg (Negative); Glucose Urine UA Norm (Normal); Ketones Urine Negative (Negative); Leukocyte Esterase Urine Negative (Negative); Nitrate Urine Negative (Negative); Protein Urine Neg (Negative); Urine Appearance Clear (CLEAR); Urine Color Yellow (Yellow); Urobilinogen Urine 1 mg/dL (Negative); pH Urine 7 (5-7)
[2020-08-13 00:07] LABS: Basophils % 0.3 %; Eosinophils # 0.3 10^3/uL (0.0-0.8); Eosinophils % 2.6 %; Hematocrit 42.2 % (42.0-52.0); Hemoglobin 15.1 g/dL (11.7-16.6); Lymphocytes # 3.7 10^3/uL (0.8-4.8); Lymphocytes % 29.4 %; Mean Corpuscular HGB Conc 35.8 g/dL (30.0-36.0); Mean Corpuscular Hemoglobin 30.5 pg (28.0-34.0); Mean Corpuscular Volume 85.3 fL (80-94); Mean Platelet Volume 10.1 fL (7.4-10.4); Monocytes # 0.7 10^3/uL (0.2-0.9); Monocytes % 5.9 %; Neutrophils # 7.62 10^3/uL (1.8-7.7); Neutrophils % 61.2 %; Nucleated Red Blood Cells % 0 %; Platelet Count 211 10^3/cmm (130-400); Red Blood Count 4.95 10^6/uL (4.1-5.3); Red Cell Distribution Width 12.6 % (12.1-15.1); White Blood Count 12.5 10^3/uL (4.0-10.0)
[2020-08-13 00:25] LABS: Alanine Aminotransferase 13 U/L (0-41); Albumin Level 4.2 g/dL (3.5-5.2); Alkaline Phosphatase 99 IU/L (40-130); Anion Gap 15.7 (5-19); Aspartate Amino Transferase 15 U/L (0-40); Blood Urea Nitrogen 11 mg/dL (6-20); Calcium 8.6 mg/dL (8.5-10.5); Carbon Dioxide 24 mmol/L (22-29); Chloride 102 mmol/L (98-107); Globulin 2.2 g/dL (1.3-4.6); Glomerular Filtration Rate 124.3 mL/min (90-130); Glucose 117 mg/dL (65-115); Osmolality Calculated 286 mOsm/kg (285-295); Potassium 3.7 mmol/L (3.5-5.1); Sodium 138 mmol/L (136-145); Total Bilirubin 0.3 mg/dL (0.15-1.2); Total Protein 6.4 g/dL (6.6-8.7)
[2020-08-13 00:28] LABS: Acetaminophen < 5.0 ug/mL (10-30); Alcohol Level < 10 mg/dL (0-10); Salicylate < 0.3 mg/dL (3-10)
[2020-08-13 01:33] VITALS: BP 124/87; PULSE 88; RESP 20; TEMP 36.8; O2SAT 97
--- NOTE | 2020-08-13 01:50 | ED_ITS ---
HPI - Psych General: Chief Complaint: Psychiatric Symptoms Stated Complaint: SI Time Seen by Provider: 08/12/20 23:21 History of Present Illness: HPI Narrative: 40-year-old male presents with suicidal ideation. He was seen yesterday for multiple seizures. He was loaded with Keppra. He states he has not had another seizure. Of note, he has more than one outstanding warrant, and has a lot of stress of late. He tells me his plan was to cut his wrists with a knife. He was not suicidal yesterday on interview. MD complaint: suicidal ideation Onset (ago): hour(s) Duration: constant History of same: No Relieving factors: none Exacerbating factors: none Context: recent drug abuse and significant life stressor Associated psychiatric symptoms: depression and suicidal ideation Associated symptoms: Reports depression and suicidal ideation; Deny auditory hallucinations, visual hallucinations or delusions Treatments prior to arrival: none If self harm: admits thoughts of self harm Review of Systems Psych: Reports: depression and suicidal ideation; Denies: visual hallucinations or auditory hallucinations PFS ED PFSH: Social History Smoking and tobacco status: current every day smoker cigarettes Packs smoked per day: 0.5 Years cigarettes smoked: 20 Alcohol intake: never Special bk needs: No Physical Exam Psych: THOUGHT CONTENT: No delusions Course Vital Signs: Vital signs: Vital Signs Temperature 98.2 F 08/13/20 01:33 Pulse Rate 88 08/13/20 01:33 Respiratory Rate 20 H 08/13/20 01:33 Blood Pressure 124/87 08/13/20 01:33 Pulse Oximetry 97 08/13/20 01:33 MDM - Psych Lab Data: Labs: Lab Results 08/12/20 08/12/20 08/13/20 Range/Units 23:33 23:33 00:02 WBC 12.5 H (4.0-10.0) 10^3/ uL RBC 4.95 (4.1-5.3) 10^6/u L Hgb 15.1 (11.7-16.6) g/dL Hct 42.2 (42.0-52.0) % MCV 85.3 (80-94) fL MCH 30.5 (28.0-34.0) pg MCHC 35.8 (30.0-36.0) g/dL RDW 12.6 (12.1-15.1) % Plt Count 211 (130-400) 10^3/c mm MPV 10.1 (7.4-10.4) fL Neut % (Auto) 61.2 % Lymph % (Auto) 29.4 % [place] % (Auto) 5.9 % Eos % (Auto) 2.6 % Baso % (Auto) 0.3 % Neut # (Auto) 7.62 (1.8-7.7) 10^3/u L Lymph # (Auto) 3.7 (0.8-4.8) 10^3/u L [place] # (Auto) 0.7 (0.2-0.9) 10^3/u L Eos # (Auto) 0.3 (0.0-0.8) 10^3/u L Baso # (Auto) 0.0 (0.0-0.1) 10^3/u L Nucleated RBC % (a uto) 0 % Nucleated RBCs # 0.0 /100WBC Sodium (136-145) mmol/L Potassium (3.5-5.1) mmol/L Chloride (98-107) mmol/L Carbon Dioxide (22-29) mmol/L Anion Gap (5-19) BUN (6-20) mg/dL Creatinine (0.7-1.2) mg/dL GFR Calculation (90-130) mL/min Glucose (65-115) mg/dL Calculated Osmolal ity (285-295) mOsm/k g Calcium (8.5-10.5) mg/dL Total Bilirubin (0.15-1.2) mg/dL AST (0-40) U/L ALT (0-41) U/L Alkaline Phosphata se (40-130) IU/L Total Protein (6.6-8.7) g/dL Albumin (3.5-5.2) g/dL Globulin (1.3-4.6) g/dL Urine Color Yellow (Yellow) Urine Appearance Clear (CLEAR) Urine pH 7 (5-7) Ur Specific Gravit y 1.010 (1.005-1.030) Urine Protein Neg (Negative) Urine Glucose (UA) Norm (Normal) Urine Ketones Negative (Negative) Urine Blood Neg (Negative) Urine Nitrate Negative (Negative) Urine Bilirubin Neg (Negative) Urine Urobilinogen 1 H (Negative) mg/dL Ur Leukocyte Philly ase Negative (Negative) Salicylates (3-10) mg/dL Urine Opiates Scre en Negative (Negative) ng/mL Acetaminophen (10-30) ug/mL Ur Barbiturates Sc reen Negative (Negative) ng/mL Ur Phencyclidine S crn Negative (Negative) ng/mL Ur Amphetamines Sc reen Positive H (Negative) ng/mL U Benzodiazepines Scrn Positive H (Negative) ng/mL Urine Cocaine Scre en Negative (Negative) ng/mL U Marijuana (THC) Screen Negative (Negative) ng/mL Ethyl Alcohol (0-10) mg/dL 08/13/20 Range/Units 00:02 WBC (4.0-10.0) 10^3/ uL RBC (4.1-5.3) 10^6/u L Hgb (11.7-16.6) g/dL Hct (42.0-52.0) % MCV (80-94) fL MCH (28.0-34.0) pg MCHC (30.0-36.0) g/dL RDW (12.1-15.1) % Plt Count (130-400) 10^3/c mm MPV (7.4-10.4) fL Neut % (Auto) % Lymph % (Auto) % Caroline % (Auto) % Eos % (Auto) % Baso % (Auto) % Neut # (Auto) (1.8-7.7) 10^3/u L Lymph # (Auto) (0.8-4.8) 10^3/u L Caroline # (Auto) (0.2-0.9) 10^3/u L Eos # (Auto) (0.0-0.8) 10^3/u L Baso # (Auto) (0.0-0.1) 10^3/u L Nucleated RBC % (a uto) % Nucleated RBCs # /100WBC Sodium 138 (136-145) mmol/L Potassium 3.7 (3.5-5.1) mmol/L Chloride 102 (98-107) mmol/L Carbon Dioxide 24 (22-29) mmol/L Anion Gap 15.7 (5-19) BUN 11 (6-20) mg/dL Creatinine 0.7 (0.7-1.2) mg/dL GFR Calculation 124.3 (90-130) mL/min Glucose 117 H (65-115) mg/dL Calculated Osmolal ity 286 (285-295) mOsm/k g Calcium 8.6 (8.5-10.5) mg/dL Total Bilirubin 0.3 (0.15-1.2) mg/dL AST 15 (0-40) U/L ALT 13 (0-41) U/L Alkaline Phosphata se 99 (40-130) IU/L Total Protein 6.4 L (6.6-8.7) g/dL Albumin 4.2 (3.5-5.2) g/dL Globulin 2.2 (1.3-4.6) g/dL Urine Color (Yellow) Urine Appearance (CLEAR) Urine pH (5-7) Ur Specific Gravit y (1.005-1.030) Urine Protein (Negative) Urine Glucose (UA) (Normal) Urine Ketones (Negative) Urine Blood (Negative) Urine Nitrate (Negative) Urine Bilirubin (Negative) Urine Urobilinogen (Negative) mg/dL Ur Leukocyte Philly ase (Negative) Salicylates < 0.3 L (3-10) mg/dL Urine Opiates Scre en (Negative) ng/mL Acetaminophen < 5.0 L (10-30) ug/mL Ur Barbiturates Sc reen (Negative) ng/mL Ur Phencyclidine S crn (Negative) ng/mL Ur Amphetamines Sc reen (Negative) ng/mL U Benzodiazepines Scrn (Negative) ng/mL Urine Cocaine Scre en (Negative) ng/mL U Marijuana (THC) Screen (Negative) ng/mL Ethyl Alcohol < 10 (0-10) mg/dL Discharge Plan Discharge Patient Disposition: Admitted As Inpatient Admit Provider: Melissa Cortes Clinical Impression: Suicidal ideation, Amphetamine abuse Condition: Stable Coding Level of Care Code ED Supervisor Contingents for Chg Fwd Exam Problem Focused
[2020-08-13 02:11] VITALS: BP 139/90; PULSE 74; RESP 18; TEMP 37; O2SAT 95
[2020-08-13] MEDS: levETIRAcetam 500 mg Tablet PO ×2 (02:28→08:34)
[2020-08-13] MEDS: hyDROXYzine 25 mg Capsule 50 MG PO (02:28)
[2020-08-13] MEDS: trazodone 50 mg Tablet PO (02:28)
[2020-08-13 06:00] VITALS: BP 130/90; PULSE 93; RESP 18; TEMP 36.8; O2SAT 96
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
[2020-08-13 10:24] VITALS: BP 130/90; PULSE 93; RESP 18; TEMP 36.8; O2SAT 96
--- NOTE | 2020-08-14 15:14 | PC.RESP ---
Smoking Cessation information sent to patient.
[2020-08-16 09:38] LABS: Levetiracetam Keppra <2.0 mcg/mL
== END 2020-08-13 10:35 | disposition home or self-care (01) ==
LOC: ER 08-13 00:31 → NP 08-13 10:21
PROVIDERS: Admitting Provider Psychiatry & Neurology Psychiatry; Emergency Provider Emergency Medicine; PCP Family Medicine; Visit Provider Psychiatry & Neurology Psychiatry
DX: F15.10 Other stimulant abuse, uncomplicated (principal); R56.9 Unspecified convulsions; R45.851 Suicidal ideations; F17.210 Nicotine dependence, cigarettes, uncomplicated
CPT/HCPCS: 80053; 80177; 80306; 80307; 81003; 85025; 99285; G0378

== ENCOUNTER → 2021-01-15 15:57 | Outpatient (BNVA) | payer OTHER, SELFPAY | PROVIDERS: PCP Family Medicine; Visit Provider Surgery | DX: K62.5 Hemorrhage of anus and rectum (principal); Z20.822 Contact with and (suspected) exposure to COVID-19 | CPT/HCPCS: 87635 ==

== ENCOUNTER 2021-01-19 08:24 | Day surgery (SDC) | payer MEDICAID, SELFPAY ==
[2021-01-15 14:10] VITALS: BMI 29.5
--- NOTE | 2021-01-19 08:41 | ANES.PREANE2 ---
Pre-Anesthetic Assessment Pre-Anesthetic Assessment: Height/Weight: Height 1.8 m Weight 96.162 kg Preop Diagnosis: bleeding per rectum Proposed Procedure: Operation Date: 01/19/21 09:45 Proposed Procedures p EGD/Colon 46289 K62.5(Not Applicable) - Kobi Mccurdy MD s Colonoscopy 67499 R19.4(Not Applicable) - Kobi Mccurdy MD Familial anesthetic complications: None Was Beta Adam taken within 24 hours: N/A Was Clonidine taken within 24 hours: N/A Last intake: > 8hrs Social: Social History: No alcohol and No tobacco Exam: Pre-Anes Outpt Exam: alert, oriented x 3, clear to auscultation bilaterally and regular rate & rhythm Airway: Cervical ROM: WNL MP: 3 Dentition: False Anesthetic Plan: ASA status: 2 Risk of > 500 ml blood loss (7ml/kg in children): No PFSH Anesthesia PFSH: Family History Other Cancer Lung disease Social History Smoking and tobacco status: former smoker Alcohol intake: never History of recent travel: No Special bk needs: No Data Anesthesia Cardiac Studies: No Data to Display
--- NOTE | 2021-01-19 09:11 | W.PM.OPSUD ---
Surgery/Procedure H&P Update DATE OF PROCEDURE: January 19, 2021 DATE H&P PERFORMED: 01/01/21 H&P UPDATE INFORMATION: I have reviewed H&P completed within last 30 days, I have examined patient prior to procedure and No changes to prior documentation PREOP DIAGNOSIS: Bleeding per rectum PRIMARY INDICATION FOR PROCEDURE: The same PLANNED PROCEDURE: Operation Date: 01/19/21 09:45 Proposed Procedures p EGD/Colon 97342 K62.5(Not Applicable) - Kobi Mccurdy MD s Colonoscopy 08066 R19.4(Not Applicable) - Kobi Mccurdy MD
[2021-01-19 09:22] VITALS: BP 164/97; PULSE 71; RESP 18; TEMP 36.8; O2SAT 97
[2021-01-19] MEDS: sodium chloride 0.9% 1,000 ML 30 ML IV (09:37)
[2021-01-19 11:32] VITALS: BP 133/95; PULSE 79; RESP 18; O2SAT 100
[2021-01-19 11:41] VITALS: BP 135/92; PULSE 86; RESP 18; O2SAT 100
--- NOTE | 2021-01-19 11:41 | ANE.PACU2 ---
Inpatient post-anesthesia follow up: Airway intact: Yes Vital signs: Temperature 98.2 F Pulse Rate 71 Respiratory Rate 18 Blood Pressure 164/97 Pulse Oximetry 97 Oxygen Delivery Me thod Room Air Oxygen Flow Rate Fraction of Inspir ed Oxygen Hydration adequate: Yes Nausea and vomiting: No Pain level: 1 Mental status: Baseline
[2021-01-22 15:12] LABS: H. Pylori / CLO Test Negative
== END 2021-01-19 12:04 | disposition home or self-care (01) ==
PROVIDERS: PCP Family Medicine; Visit Provider Surgery
PROC: 0DJ08ZZ Inspection of Upper Intestinal Tract, Via Natural or Artificial Opening Endoscopic (ICD-10-PCS; CPT 43235; principal; 2021-01-19 09:45)
PROC: 0DJD8ZZ Inspection of Lower Intestinal Tract, Via Natural or Artificial Opening Endoscopic (ICD-10-PCS; CPT 45378; 2021-01-19 09:45)
DX: K62.5 Hemorrhage of anus and rectum (principal); D12.0 Benign neoplasm of cecum; D12.2 Benign neoplasm of ascending colon; D12.5 Benign neoplasm of sigmoid colon; K21.00 Gastro-esophageal reflux disease with esophagitis, without bleeding; R10.9 Unspecified abdominal pain; K29.70 Gastritis, unspecified, without bleeding; K29.80 Duodenitis without bleeding; K22.10 Ulcer of esophagus without bleeding; R19.4 Change in bowel habit
CPT/HCPCS: 43239; 45380; 87077; 88305; 96360; 96361; J2704; J7030

== ENCOUNTER 2021-02-14 10:25 | Emergency (ER) | payer MEDICAID, SELFPAY ==
[2021-02-14 10:41] VITALS: BP 148/98; PULSE 76; RESP 16; TEMP 36.8; O2SAT 99; BMI 30.1
[2021-02-14 13:39] LABS: Basophils % 0.4 %; Eosinophils # 0.2 10^3/uL (0.0-0.8); Eosinophils % 1.8 %; Hemoglobin 17.2 g/dL (11.7-16.6); Lymphocytes # 3.3 10^3/uL (0.8-4.8); Lymphocytes % 32.5 %; Mean Corpuscular HGB Conc 34.4 g/dL (30.0-36.0); Mean Corpuscular Hemoglobin 29.8 pg (28.0-34.0); Mean Corpuscular Volume 86.7 fl (80-94); Mean Platelet Volume 10.9 fL (7.4-10.4); Monocytes # 0.6 10^3/uL (0.2-0.9); Neutrophils # 6.05 10^3/uL (1.8-7.7); Nucleated Red Blood Cells % 0 %; Platelet Count 230 10^3/cmm (130-400); Red Blood Count 5.77 10^6/uL (4.1-5.3); Red Cell Distribution Width 12.8 % (12.1-15.1); White Blood Count 10.2 10^3/uL (4.0-10.0)
[2021-02-14 14:09] LABS: Alanine Aminotransferase 14 U/L (0-41); Albumin Level 4.7 g/dL (3.5-5.2); Alkaline Phosphatase 90 IU/L (40-130); Anion Gap 18.3 (5-19); Aspartate Amino Transferase 18 U/L (0-40); Blood Urea Nitrogen 13 mg/dL (6-20); Calcium 9.7 mg/dL (8.5-10.5); Carbon Dioxide 25 mmol/L (22-29); Chloride 102 mmol/L (98-107); Globulin 2.6 g/dL (1.3-4.6); Glucose 94 mg/dL (65-115); Lipase 47 U/L (13-60); Osmolality Calculated 292 mOsm/kg (285-295); Potassium 4.3 mmol/L (3.5-5.1); Sodium 141 mmol/L (136-145); Total Bilirubin 0.4 mg/dL (0.15-1.2); Total Protein 7.3 g/dL (6.6-8.7)
[2021-02-14 15:11] LABS: Add Urine Microscopic? NO; Charge for UA Resulting for Rev
--- NOTE | 2021-02-14 15:19 | ED_ITS ---
HPI - Abdominal Pain General: Chief Complaint: Abdominal Pain Stated Complaint: THROWING UP BLOOD/ABD PAIN Time Seen by Provider: 02/14/21 15:18 History of Present Illness: HPI narrative: Mr. Stephenson is a 40-year-old gentleman with endoscopy diagnosed colonic polyps and esophagitis gastritis and duodenitis with history of GI bleed and hematemesis who presents to the emergency department due to abdominal pain and hematemesis. He reports essentially chronic abdominal pain which varies in intensity and is generalized however is worsened over the past few days. Intensity is currently moderate to severe. Location is generalized worst in the upper abdomen. Quality is sharp and aching and burning. Symptoms are not worsened by any particular activity including eating. He does endorse 2 episodes of hematemesis today with dark red blood. No lightheadedness, dizziness, or other systemic signs. No known specific provoking or exacerbating factors. He has had similar episodes in the past as noted. Review of Systems General: Reports: 10 or more systems reviewed and unremarkable except in HPI and below PFSH ED PFSH: Medical History Bleeding per rectum Gastritis and duodenitis Family History Other Cancer Lung disease Social History Alcohol intake: never History of recent travel: No Special bk needs: No Physical Exam Narrative: EXAM NARRATIVE: GENERAL/CONSTITUTIONAL -mildly ill appearance. No acute distress. Not actively vomiting blood. Eyes - PERRL, no conjunctival injection ENMT - Atraumatic external nose and ears. Moist mucous membranes NECK - supple. trachea midline CARDIOVASCULAR - regular rate and rhythm. Peripheral pulses 2+ and equal RESPIRATORY - clear to auscultation bilaterally. No retractions or accessory muscle use. ABDOMEN/GI -tenderness to palpation worse in the epigastric region. Nondistended. No remote peritonitis. MSK - Extremities without obvious deformity or tenderness to palpation SKIN - Warm, Dry NEURO - alert and appropriately oriented. Moves all extremities equally. Course ED course: - Patient was seen and evaluated by me at bedside - Patient placed on cardiac monitors, IV access obtained - Initial evaluation notable for exam as noted above. Patient is not tachycardic and not actively vomiting. -Symptom treatment ordered - Labs notable for minimal leukocytosis, hemoconcentration. No acute electrolyte derangement related to vomiting. - Imaging notable for colitis. Metal clip does correlate with reported history. - Upon serial reexamination after treatment the patient was improved. He tolerated p.o. intake - Based on patient history, evaluation, labs, and imaging as interpreted the most likely cause of the patient's condition is hematemesis likely related to previous endoscopy findings. Patient continues to be vitally stable with improved pain and no recurrent episodes. - The results of ED evaluation were discussed with the patient including prescriptions and/or symptomatic cares (if applicable) including appropriate and responsible use, followup plan, and return precautions. The patient verbalized understanding and felt safe for discharge. - Patient discharged in satisfactory condition. Vital Signs: Vital signs: Vital Signs Temperature 98.2 F 02/14/21 10:41 Pulse Rate 86 02/14/21 17:59 Respiratory Rate 18 02/14/21 17:59 Blood Pressure 152/100 02/14/21 17:59 Pulse Oximetry 98 02/14/21 17:59 MDM - Abdominal Pain Medical Records: Attestation: I reviewed the patient's medical records. Lab Data: Attestation: I reviewed the patient's lab results. Labs: Lab Results 02/14/21 02/14/21 02/14/21 13:24 13:24 15:01 WBC 10.2 10^3/uL H 10 ^3/uL (4.0-10.0) RBC 5.77 10^6/uL H 10 ^6/uL (4.1-5.3) Hgb 17.2 g/dL H g/dL (11.7-16.6) Hct 50.0 % % (42.0-52.0) MCV 86.7 fl fl (80-94) MCH 29.8 pg pg (28.0-34.0) MCHC 34.4 g/dL g/dL (30.0-36.0) RDW 12.8 % % (12.1-15.1) Plt Count 230 10^3/cmm 10^3 /cmm (130-400) MPV 10.9 fL H fL (7.4-10.4) Neut % (Auto) 59.0 % % Lymph % (Auto) 32.5 % % [place] % (Auto) 6.0 % % Eos % (Auto) 1.8 % % Baso % (Auto) 0.4 % % Neut # (Auto) 6.05 10^3/uL 10^3 /uL (1.8-7.7) Lymph # (Auto) 3.3 10^3/uL 10^3/ uL (0.8-4.8) [place] # (Auto) 0.6 10^3/uL 10^3/ uL (0.2-0.9) Eos # (Auto) 0.2 10^3/uL 10^3/ uL (0.0-0.8) Baso # (Auto) 0.0 10^3/uL 10^3/ uL (0.0-0.1) Nucleated RBC % (a uto) 0 % % Nucleated RBCs # 0.0 /100WBC /100W BC Sodium 141 mmol/L mmol/L (136-145) Potassium 4.3 mmol/L mmol/L (3.5-5.1) Chloride 102 mmol/L mmol/L (98-107) Carbon Dioxide 25 mmol/L mmol/L (22-29) Anion Gap 18.3 (5-19) BUN 13 mg/dL mg/dL (6-20) Creatinine 0.9 mg/dL mg/dL (0.7-1.2) GFR Calculation 93.0 mL/min mL/mi n (90-130) Glucose 94 mg/dL mg/dL (65-115) Calculated Osmolal ity 292 mOsm/kg mOsm/ kg (285-295) Calcium 9.7 mg/dL mg/dL (8.5-10.5) Total Bilirubin 0.4 mg/dL mg/dL (0.15-1.2) AST 18 U/L U/L (0-40) ALT 14 U/L U/L (0-41) Alkaline Phosphata se 90 IU/L IU/L (40-130) Total Protein 7.3 g/dL g/dL (6.6-8.7) Albumin 4.7 g/dL g/dL (3.5-5.2) Globulin 2.6 g/dL g/dL (1.3-4.6) Lipase 47 U/L U/L (13-60) Urine Color Yellow (Yellow) Urine Appearance Clear (CLEAR) Urine pH 5 (5-7) Ur Specific Gravit y 1.020 (1.005-1.030) Urine Protein Neg (Negative) Urine Glucose (UA) Norm (Normal) Urine Ketones Negative (Negative) Urine Blood Neg (Negative) Urine Nitrate Negative (Negative) Urine Bilirubin Neg (Negative) Urine Urobilinogen Norm mg/dL mg/dL (Negative) Ur Leukocyte [place] ase Negative (Negative) Discharge Plan Discharge Patient Disposition: Home Clinical Impression: Abdominal pain, Hematemesis, Colitis Condition: Stable Prescriptions: New amoxicillin-pot clavulanate 875-125 mg tablet 1 tab PO BID Qty: 20 RF: 0 Changed Protonix 40 mg tablet,delayed release (DR/EC) 40 mg PO BID 30 Days Qty: 60 RF: 3 Discontinued amoxicillin 500 mg tablet 1,000 mg PO BID 14 Days Qty: 56 RF: 0 No Action clarithromycin 500 mg tablet 500 mg PO QID 14 Days Qty: 56 RF: 0 sucralfate [Carafate] 1 gram tablet 1 g PO Q8H 30 Days Qty: 90 RF: 3 Discharge Orders: Discharge ED (Routine); Ordered 02/14/21 Ordered By: Sidney Andres Referrals: Crispin Jim, [Primary Care Provider] - Discharge Diet: Advance as tolerated and Clear Liquid Discharge Activity: Resume usual activity Patient Instructions: Abdominal Pain (ED), Colitis (ED), Hematemesis (ED) Activity Restrictions/Additional Instructions: Thank you for visiting the emergency department. You were seen and evaluated for hematemesis, abdominal pain. You were found to have colitis, the likely cause of your hematemesis is related to previous ulcers/irritation. Please avoid NSAIDs. Please follow-up with your primary care provider. Return to the emergency department for worsening symptoms, failure to improve, multiple episodes of hematemesis, lightheadedness, dizziness, chest pain, shortness of breath, or anything else that you are concerned about and feel needs emergency department evaluation. Coding Level of Care Code ED Regasification Plant Operator for Angelo Bains
[2021-02-14 15:21] LABS: Bilirubin Urine Neg (Negative); Blood Urine Neg (Negative); Glucose Urine UA Norm (Normal); Ketones Urine Negative (Negative); Leukocyte Esterase Urine Negative (Negative); Nitrate Urine Negative (Negative); Protein Urine Neg (Negative); Urine Appearance Clear (CLEAR); Urine Color Yellow (Yellow); Urobilinogen Urine Norm (Negative); pH Urine 5 (5-7)
--- NOTE | 2021-02-14 15:33 | CT_ITS ---
WS: [id number] CT ABDOMEN PELVIS TECHNIQUE: Contrast-enhanced CT of the abdomen and pelvis with coronal and sagittal reformatted image s. CLINICAL INFORMATION: abdominal pain, hematemesis COMPARISON: None. DLP: 1654.[address] scans at [facility] use at least one of these dose optimization techniques: automated e xposure control; mA and/or kV adjustment per patient size (includes targeted exams where dose is matc hed to clinical indication); or iterative reconstruction. FINDINGS:Mild colonic thickening with induration involving the cecum and ascending colon compatible w ith mild infectious or inflammatory colitis. Less prominent involvement of the transverse colon. Ashley josef of the colon is normal in appearance. A few reactive lymph nodes right lower quadrant. Stomach and duodenum are normal in appearance. Small amount of fluid in the stomach. No evidence of p erforated ulcer or free air. Mild diffuse fatty infiltration liver. Cholecystectomy clips. Normal spl een. Adrenal glands are normal. Normal renal parenchymal enhancement. No hydronephrosis. Lung bases a re well aerated. Adrenal glands are normal. No hydronephrosis. Normal caliber abdominal aorta. Sigmoid diverticulosis. No evidence of acute diverticulitis. No evidence of high-grade small or large bowel obstruction. Metallic clip in the cecum may be related to prior polyp removal. Recommend corre lation with prior biopsies. CT/CT abdomen pelvis w con* [id number] IMPRESSION: 1. Mild diffuse colonic wall thickening with induration involving the cecum an d ascending colon slightly extending into the transverse colon suspicious for m ild infectious or inflammatory colitis. A few reactive lymph nodes in the right lower quadrant. 2. Stomach and duodenum appear normal. 3. Mild diffuse fatty infiltration of the liver. Cholecystectomy. 4. Metallic clip in the cecum likely endoclip left from prior colonoscopy with polyp removal/biopsy. Recommend correlation with clinical history. 5. Sigmoid diverticulosis. No evidence of acute diverticulitis 6. No other significant findings.
[2021-02-14] MEDS: iohexol 300 mg/mL 100 mL Btl IV (15:50)
[2021-02-14] MEDS: sodium chloride 0.9% 1,000 ML 999 ML IV (16:01)
[2021-02-14] MEDS: ondansetron 2 mg/ML SDV 2 mL 4 MG IVP (16:04)
[2021-02-14] MEDS: ketorolac 30 mg/mL INJ 15 MG IVP (16:05)
[2021-02-14] MEDS: acetaminophen 500 mg Tablet 1000 MG PO (16:06)
[2021-02-14] MEDS: pantoprazole 40 mg SDV IVP (16:10)
[2021-02-14 16:11] VITALS: BP 141/110; PULSE 73; RESP 15; O2SAT 98
[2021-02-14 17:18] VITALS: BP 136/95; PULSE 70; RESP 16; O2SAT 99
[2021-02-14 17:59] VITALS: BP 152/100; PULSE 86; RESP 18; O2SAT 98
== END 2021-02-14 18:00 | disposition home or self-care (01) ==
PROVIDERS: Emergency Provider Emergency Medicine; PCP Family Medicine
DX: K52.9 Noninfective gastroenteritis and colitis, unspecified (principal); K92.0 Hematemesis
CPT/HCPCS: 36415; 74177; 80053; 81003; 83690; 85025; 96361; 96374; 96375; 99284; C9113; J1885; J2405; J7030; Q9967

== ENCOUNTER 2021-07-10 20:00 | Outpatient (CLI) | payer MEDICAID, SELFPAY | END 2021-07-10 20:01 | disposition home or self-care (01) | PROVIDERS: PCP Family Medicine; Visit Provider Nurse Practitioner Family | DX: G47.33 Obstructive sleep apnea (adult) (pediatric) (principal) | CPT/HCPCS: 95810 ==